=== PATIENT | male | born 1970 | race Caucasian/White ===

== ENCOUNTER 2016-11-15 18:14 | Emergency (ER) ==
--- NOTE | 2016-11-15 19:40 | PROVIDER DOCUMENTATION ---
HPI-Musculoskeletal Pain/Inj - GENERAL Chief Complaint: Extremity Pain Stated Complaint: RT FT PAIN Time Seen by Provider: 11/15/16 19:35 Source: patient - HX OF PRESENT ILLNESS-MUSKULOSKELTAL Nature of Presenting Problem: 46 y/o WM c/o R foot pain, numbness x 3 days. Pt states that painful with walking. States felt pop in foot on Tuesday and states painful since. Pt ambulating to room, with limp. States pinky toe is black. Reports foot is swollen. Denies any other sxs. Review of Systems - Adult - REVIEW OF SYSTEMS - ADULT Constitutional: reports: no symptoms reported. denies: chills, fever Eyes: reports: no symptoms reported. denies: blurred vision, double vision Ears, Nose, Mouth & Throat: reports: no symptoms reported. denies: ear pain, nose pain Cardiovascular: reports: no symptoms reported. denies: chest pain, palpitations Respiratory: reports: no symptoms reported. denies: dyspnea on exertion, shortness of breath Gastrointestinal: reports: no symptoms reported. denies: abdominal pain, nausea , vomiting Genitourinary: reports: no symptoms reported. denies: dysuria, frequency Musculoskeletal: reports: see HPI, joint pain. denies: back pain, neck pain Integumentary: reports: no symptoms reported. denies: nail changes, rash Neurological: reports: no symptoms reported. denies: numbness, paresthesia Psychiatric: reports: no symptoms reported Endocrine: reports: no symptoms reported. denies: cold intolerance, heat intolerance Hematologic/Lymphatic: reports: no symptoms reported. denies: easy bruising, prolonged bleeding Allergic/Immunologic: reports: no symptoms reported All Other Systems: Reviewed and Negative Past History - Adult - PAST MEDICAL HISTORY-ADULT Review of Records: reports: Nursing Assessment Review, Medications Reviewed Major Childhood Illnesses: reports: denies history Cardiovascular: reports: denies history Respiratory: reports: denies history Gastrointestinal: reports: denies history Obstetrical/Gynecological: reports: denies history Genitourinary: reports: denies history Musculoskeletal: reports: denies history Neurological: reports: other (nerve damage) Endocrine/Immune: reports: Diabetes Other Conditions: reports: denies history - PRIOR SURGERIES/PROCEDURES Surgical/Procedure History: reports: back/neck - IMMUNIZATION STATUS Childhood Immunizations: See Nurse Assessment Flu Vaccine: See Nurse Assessment - FAMILY HISTORY Family History: reviewed, not pertinent - SOCIAL HISTORY Smoking: cigarettes, less than 1 pack/day Alcohol Use Frequency: never Physical Exam-Injury Related - Physical Exam-Injury Related Initial Vital Signs Reviewed: Yes General Appearance: alert, mild distress Eyes: pink conjunctivae Head, Ears, Nose, Mouth & Throat: normocephalic/atraumatic, moist mucous membranes Neck: normal inspection Respiratory: no respiratory distress Cardiovascular: normal peripheral pulses, regular rate, rhythm Peripheral Pulses: dorsalis-pedis (R): 1+, dorsalis-pedis (L): 1+ Back Exam: normal inspection Extremity: normal inspection, normal capillary refill, swelling (mild, redness to 4th digit of R foot). negative: abnormal NV exam, pulse deficit Integumentary: normal color, warm/dry, blanching. negative: rash, swelling, warm Neurologic: sensory deficit (states no sensation to dorsal aspect of foot). negative: aphasia, motor weakness Psych/Mental Status: normal mood/affect, normal thought content, normal thought process, oriented x 3 Progress - PLAN OF CARE/RESULTS Progress/Plan/Lab Results: Laboratory Tests 11/15/16 11/15/16 20:25 20:25 WBC 9.65 RBC 5.14 Hgb 16.8 Hct 47.5 MCV 92.4 MCH 32.7 H MCHC 35.4 RDW Std Deviation 11.8 Plt Count 182 MPV 12.0 H Immature Gran % (Auto) 0.0 Neut % (Auto) 55.3 Lymph % (Auto) 36.6 [place] % (Auto) 6.9 Eos % (Auto) 1.0 Baso % (Auto) 0.2 Immature Gran # (Auto) 0.00 Neut # (Auto) 5.33 Lymph # (Auto) 3.53 H [place] # (Auto) 0.67 H Eos # (Auto) 0.10 Baso # (Auto) 0.02 Sodium 140 Potassium 4.4 Chloride 99 Carbon Dioxide 26 Anion Gap 15 BUN 14 Creatinine 0.8 Estimated GFR/1.73 m2 > 60 BUN/Creatinine Ratio 18 Glucose 240 H Calculated Osmolality 288 Calcium 9.4 Total Bilirubin 0.57 AST 14 ALT 18 Alkaline Phosphatase 46 Total Protein 7.2 Albumin 4.4 Globulin 2.8 Albumin/Globulin Ratio 1.6 Orders Category Date Time Status FOOT COMPLETE RIGHT [RAD] Stat Exams 11/15/16 19:41 Completed CBC WITH ELECTRONIC DIFF [HEME] Stat Lab 11/15/16 20:25 Completed COMPREHENSIVE METABOLIC PANEL [CHEM] Stat Lab 11/15/16 20:25 Completed Vital Signs Temp Pulse Resp BP Pulse Ox 11/15/16 22:36 91 H 20 122/99 100 11/15/16 18:36 98.3 F 114 H 18 155/95 100 fentanyl Allergy (Verified 11/15/16 21:37) SHORTNESS OF BREATH hydromorphone HCl * [From Dilaudid] Adverse Reaction (Verified 11/15/16 21:37) RASH morphine Adverse Reaction (Verified 11/15/16 21:37) Unknown Penicillins Adverse Reaction (Verified 11/15/16 21:37) SHORTNESS OF BREATH steroids Allergy (Uncoded 11/15/16 21:37) ANAPHYLAXIS Insulin Detemir [Levemir] 16 units SQ QHS 02/14/15 Insulin Aspart [Novolog] 10 - 15 unit SQ AC 11/15/16 TYPE 2 DIABETES MELLITUS WITHOUT COMPLICATIONS (11/15/16) NICOTINE DEPENDENCE, CIGARETTES, UNCOMPLICATED (11/15/16) NEURALGIA AND NEURITIS, UNSPECIFIED (11/15/16) PAIN IN RIGHT FOOT (11/15/16) ANESTHESIA OF SKIN (11/15/16) LOCALIZED SWELLING, MASS AND LUMP, RIGHT LOWER LIMB (11/15/16) EXPOSURE TO OTHER SPECIFIED FACTORS, INITIAL ENCOUNTER (11/15/16) RESIDENTIAL (CURRENT) USE OF INSULIN (11/15/16) Laboratory 11/15/16 11/15/16 20:25 20:25 WBC 9.65 RBC 5.14 Hgb 16.8 Hct 47.5 MCV 92.4 MCH 32.7 H MCHC 35.4 RDW Std Deviation 11.8 Plt Count 182 MPV 12.0 H Immature Gran % (Auto) 0.0 Neut % (Auto) 55.3 Lymph % (Auto) 36.6 [place] % (Auto) 6.9 Eos % (Auto) 1.0 Baso % (Auto) 0.2 Immature Gran # (Auto) 0.00 Neut # (Auto) 5.33 Lymph # (Auto) 3.53 H [place] # (Auto) 0.67 H Eos # (Auto) 0.10 Baso # (Auto) 0.02 Sodium 140 Potassium 4.4 Chloride 99 Carbon Dioxide 26 Anion Gap 15 BUN 14 Creatinine 0.8 Estimated GFR/1.73 m2 > 60 BUN/Creatinine Ratio 18 Glucose 240 H Calculated Osmolality 288 Calcium 9.4 Total Bilirubin 0.57 AST 14 ALT 18 Alkaline Phosphatase 46 Total Protein 7.2 Albumin 4.4 Globulin 2.8 Albumin/Globulin Ratio 1.6 discussed results and follow up with the patient. - XRAY 1 XRAY: Right XRAY Study: Foot XRAY Interpretation: No evidence of infection, osteomyelitis Departure - Departure Time of Disposition Order: 22:26 DIAGNOSIS: Foot pain, right, Neuropathic pain Disposition: HOME 01 Certified Medical Emergency: Emergent Condition: Stable Additional Instructions: Continue using medications as directed, to control diabetes. Follow up with your PCP for further management. ED Follow Up Instructions: You have been treated by a care provider in the Emergency Department. These instructions are being provided to you so you can have an understanding of how to care for yourself upon discharge. Upon discharge from the Emergency Department, you are responsible for making arrangements for follow-up care by a physician of your choice. Take all prescribed medications as directed. Return to the Emergency Department immediately for any new or worsening symptoms. You may call the Physician Referral phone number at [phone] to obtain a list of Physicians who are taking new patients. Referrals: None,PCP [Primary Care Provider] - Instructions: Neuropathic Pain Attestation - Physician/ MARTHA Attestation Patient care was provided by Advanced Practice Provider:: Yes Advanced Practice Provider:: Anabel Chavira Advanced Practice Provider documentation review:: The Mid-level provider documentation, treatment plan and medical decision making was reviewed by the physician who agrees with all treatment and medical decision making by the MLP.
[2016-11-15 20:56] LABS: MANUAL DIFF NEEDED? NO
[2016-11-15 21:10] LABS: BASO% 0.2 % (0.0-0.8); HEMATOCRIT 47.5 % (42.0-52.0); HEMOGLOBIN 16.8 g/dL (14.0-18.0); LYMPH# 3.53 X1000 (1.2-3.4); LYMPH% 36.6 % (20.5-51.1); MCH 32.7 PG (27-31); MCHC 35.4 g/dL (33-37); MCV 92.4 FL (81-99); MONO# 0.67 X1000 (0.11-0.59); MONO% 6.9 % (1.7-9.3); NEUT% 55.3 % (42.2-75.2); PLT 182 X1000 (130-400); RBC 5.14 XMIL (4.7-6.1)
[2016-11-15 21:23] LABS: AGAP 15; ALBUMIN 4.4 g/dL (3.5-5.0); ALKALINE PHOSPHATASE 46 U/L (32-122); BUN 14 mg/dL (8-22); CALCIUM 9.4 mg/dL (8.8-10.2); CHLORIDE 99 mmol/L (98-107); COSMO 288; GOT 14 U/L (10-34); GPT 18 U/L (10-44); POTASSIUM 4.4 mmol/L (3.5-5.1); SODIUM 140 mmol/L (136-145); TCO2 26 mmol/L (25-35); TOTAL BILIRUBIN 0.57 mg/dL (0.20-1.00); TOTAL PROTEIN 7.2 g/dL (6.3-8.3)
[2016-11-15 22:37] VITALS: BP 122/99
--- NOTE | 2016-11-16 08:31 | Diag Imaging Result Document ---
PROCEDURE NAME: FOOT COMPLETE RIGHT - 11/15/2016 RIGHT FOOT, THREE VIEWS: FINDINGS: No fracture. No dislocation. No bone erosions. Minimal narrowing at the 1st metatarsophalangeal joint. No subluxation. No bone spurring. No erosions. IMPRESSION: Questionable minimal early arthritic changes at the 1st metatarsophalangeal joint.
== END 2016-11-15 23:01 | disposition home or self-care (01) ==
LOC: ED 18:14
DX: M79.671 Pain in right foot (principal); M79.2 Neuralgia and neuritis, unspecified; R20.0 Anesthesia of skin; R22.41 Localized swelling, mass and lump, right lower limb; E11.9 Type 2 diabetes mellitus without complications; F17.210 Nicotine dependence, cigarettes, uncomplicated; Z79.4 Long term (current) use of insulin; X58.XXXA Exposure to other specified factors, initial encounter
CPT/HCPCS: 36415; 80053; 85025; 99283

== ENCOUNTER 2016-12-06 09:09 | Inpatient (IN) ==
[2016-12-06] MEDS: NS 1,000 ML IV SCH (13:58)
[2016-12-06] MEDS ORDERED: HEPARIN 25,000 UNIT in NS 250 ML IV SCH (14:00)
[2016-12-06 14:56] LABS: MANUAL DIFF NEEDED? NO
[2016-12-06 14:59] LABS: BASO% 0.3 % (0.0-0.8); EOS# 0.06 X1000 (0.0-0.7); EOS% 0.8 % (0.0-10.0); HEMATOCRIT 44.5 % (42.0-52.0); HEMOGLOBIN 15.8 g/dL (14.0-18.0); LYMPH# 2.85 X1000 (1.2-3.4); LYMPH% 36.5 % (20.5-51.1); MCHC 35.5 g/dL (33-37); MCV 92.9 FL (81-99); MONO# 0.51 X1000 (0.11-0.59); MONO% 6.5 % (1.7-9.3); MPV 12.2 FL (7.4-10.4); NEUT% 55.9 % (42.2-75.2); PLT 182 X1000 (130-400); RBC 4.79 XMIL (4.7-6.1)
[2016-12-06 15:18] LABS: HEMOGLOBIN A1C 9.9 % (4.8-6.0)
[2016-12-06 15:24] LABS: INR 0.96
[2016-12-06 15:32] LABS: AGAP 18; ALBUMIN 4.4 g/dL (3.5-5.0); ALKALINE PHOSPHATASE 34 U/L (32-122); BUN 10 mg/dL (8-22); CALCIUM 9.1 mg/dL (8.8-10.2); CHLORIDE 91 mmol/L (98-107); COSMO 275; GOT 15 U/L (10-34); GPT 17 U/L (10-44); POTASSIUM 4.3 mmol/L (3.5-5.1); SODIUM 133 mmol/L (136-145); TCO2 24 mmol/L (25-35); TOTAL BILIRUBIN 0.71 mg/dL (0.20-1.00); TOTAL PROTEIN 7.3 g/dL (6.3-8.3)
[2016-12-06] MEDS: PERCOCET-5 PO PRN ×2 (15:51→22:21)
--- NOTE | 2016-12-06 18:10 | Diag Imaging Result Document ---
PROCEDURE NAME: ANGIOGRAM/AORTA W/RUNOFF - 12/06/2016 CT ANGIOGRAM AORTA WITH RUNOFF, WITH MIP IMAGES: FINDINGS: Normal liver, pancreas, and adrenal glands. The gallbladder is contracted. There are scattered splenic granuloma. The spleen is not enlarged. No renal mass. No bowel obstruction although there is stool throughout the colon. The urinary bladder is distended and appears normal. Normal abdominal aorta. Normal takeoff of the celiac artery and superior mesenteric artery. Normal takeoff of each renal artery. Minimal atherosclerosis distally. Left: Minimal stenosis in the common iliac artery. No calcified plaque. Normal external iliac artery. Normal common femoral artery. Normal superficial femoral artery. There is a small amount of atherosclerosis in the popliteal artery. There is actually poor concentration of contrast in the popliteal artery and calf although both anterior and posterior tibial arteries appear to be open and there is no atherosclerotic plaque. Right: Normal common iliac artery. Normal external iliac artery. Normal common femoral artery with minimal mucosal thickening distally. Normal superficial femoral artery except for a stenosis in the adductor canal of approximately 70%. There is also a stenosis in the popliteal artery. Poor concentration of contrast due to timing in the popliteal, anterior, and posterior tibial arteries. No calcified plaque in the anterior and posterior tibial arteries. Each vessel continues to the ankle. IMPRESSION: Stenosis in the distal right superficial femoral artery in the adductor canal of at least 70%.
[2016-12-06] MEDS: PLETAL PO SCH (20:19)
[2016-12-06] MEDS ORDERED: HUMULIN R SUBQ SCH (21:00)
--- NOTE | 2016-12-06 21:09 | HISTORY AND PHYSICAL ---
CHIEF COMPLAINT: Right leg claudication, decreased pulses for the last 2 weeks. HISTORY OF PRESENT ILLNESS: He is a 46-year-old, white gentleman who was seen in my office on 12/02/2016 for right foot pain increasing worsening for the last 10 days. He was seen in the emergency room 10 days ago, diagnosed with peripheral neuropathy. In my office I did the arterial flow studies. It showed RAMESH 0.5 on the right, normal on the left side. Arterial flow study demonstrated he had a distal SFA occlusion with a poor reconstitution at the popliteal artery. He has a collateral noted. He is also getting ischemic on the bottom of the heel. As a result, he has been hospitalized for ischemic foot consistent with a resting ischemia. He was started on aspirin, Pletal, and IV heparin. Waiting for CT aortogram with runoff. Based on that, further recommendations will be followed. Dr. Miranda has been consulted. PAST MEDICAL HISTORY: 1. Type 1 diabetes since age 16. 2. Nicotine dependency. 3. Chronic back pain as well as neck pain due to spondylosis. PAST SURGICAL HISTORY: None. MEDICATIONS: Levemir, NovoLog insulin, lisinopril 2.5 mg daily, aspirin 81 mg daily, [place] as directed. ALLERGIES: Penicillin. SOCIAL HISTORY: Lives in [place]. Smoking 1 pack a day for the last 20 years. No alcohol. with 1 child. FAMILY HISTORY: Father due to respiratory failure with underlying COPD. Mom is stable. HEALTH MAINTENANCE: Flu vaccine 2012, pneumococcal vaccine 2011, tetanus 2011. Last prostate exam in 2016. REVIEW OF SYSTEMS: HEENT: No headache. No dizziness. No earache. No sore throat. Neck: No goiter. No lymphadenopathy. No bruits. Cardiopulmonary: No chest pain, shortness of breath, PND, orthopnea. GI: No nausea, vomiting, abdominal pain. : No history of hesitancy, frequency. Musculoskeletal: Resting pain in the right foot. No skin rashes. Chronic back pain on pain medications. Neurologic: No focal symptoms or weakness or seizures. PHYSICAL EXAMINATION: VITAL SIGNS: Afebrile. Blood pressure is stable. Weight 131 pounds. HEENT: Atraumatic, normocephalic. Pupils equal, reactive to light. TMs are normal. Nose and throat within normal limits. NECK: Supple. No lymphadenopathy. No goiter. CHEST: Bilateral air entry. No rales, no wheezing. HEART: Sounds are regular. ABDOMEN: Belly is soft, nontender. Good bowel sounds. EXTREMITIES: Decreased pulses in the right foot. Ischemic changes on the bottom of the heel. Rest of the exam is benign. NEUROLOGIC: No obvious deficits noted. INVESTIGATIONS: CBC: White cell count 7.8, hematocrit 44, platelets 182,000. PT/INR normal. SMA 7: Sodium 133, potassium 4.3, anion gap is 18, BUN 10, creatinine 0.6, glucose 270. A1c 9.9. Liver function tests were normal. Vitamin B12 286. TSH is normal. ASSESSMENT AND PLAN: 1. A 46-year-old, white gentleman who presented with right ischemic foot consistent with resting ischemia. Ankle-brachial index is 0.5 on the right side, suspicious for superficial femoral artery obstruction distally with a poor downstream. Consider CT aortogram with runoff. Vascular consult with Dr. Miranda. Currently on IV heparin, aspirin, Pletal. 2. We will check the lipid profile and also start on Lipitor 20 mg daily. 3. Type 1 diabetes, on Levemir and Humalog insulin. 4. Hypertension, on lisinopril. 5. Chronic pain, on Percocet. 6. Based on the CT, further recommendations will be followed. Discussed with the family members. cc: Jose Hoang MD
[2016-12-06] MEDS: NICODERM PATCH TD SCH (22:20)
[2016-12-06] MEDS: LIPITOR PO SCH (22:22)
[2016-12-06] MEDS ORDERED: INSULIN PEN NEEDLES ONE (23:27)
[2016-12-06] MEDS: HUMALOG SUBQ SCH (23:29)
[2016-12-06] MEDS: LEVEMIR SUBQ SCH (23:31)
[2016-12-06] MEDS ORDERED: HEPARIN IV ONE (23:57)
[2016-12-07] MEDS: NS 1,000 ML IV SCH ×3 (03:50→13:48)
[2016-12-07] MEDS: PERCOCET-5 PO PRN ×4 (04:15→22:40)
[2016-12-07] MEDS: HUMALOG SUBQ SCH ×2 (07:33→11:52)
[2016-12-07] MEDS ORDERED: HEPARIN IV ONE (08:14)
[2016-12-07] MEDS: NICODERM PATCH TD SCH (08:24)
[2016-12-07] MEDS: PLETAL PO SCH ×2 (08:24→22:00)
[2016-12-07] MEDS: ASPIRIN PO SCH (08:24)
[2016-12-07] MEDS: PRINIVIL PO SCH (08:24)
[2016-12-07] MEDS ORDERED: HEPARIN 25,000 UNIT in NS 250 ML IV SCH ×5 (09:10→13:00)
--- NOTE | 2016-12-07 14:08 | CONSULTATION ---
DATE OF CONSULTATION: 12/07/2016 CHIEF COMPLAINT: Numbness in the foot. Claudication in the right leg. HISTORY: This is a 46-year-old smoker who about a month ago experienced sudden onset of some discomfort in his right calf and foot. He was seen in the emergency department and was felt to have peripheral neuropathy and discharged to follow up with his family physician who discovered that he had diminished pulses in his foot. Ankle brachial index was discovered to be 0.5 on the right, normal on the left. He was admitted and underwent a CTA revealing a distal SFA stenosis, possibly a right popliteal stenosis. This would be consistent with his symptoms. PAST MEDICAL HISTORY: Pertinent for insulin-dependent diabetes, nicotine dependency and chronic back pain. He has had no previous surgeries. MEDICATIONS: Levemir, NovoLog insulin, lisinopril 2.5 mg daily, aspirin 81 mg daily, [place] for pain as needed. ALLERGIES: He is allergic to penicillin. FAMILY HISTORY: Pertinent for COPD. SOCIAL HISTORY: Smokes a half pack per day. He has done so for 20 years. Denies alcohol use. He is . REVIEW OF SYSTEMS: Negative except for what is noted above. He denies any chest pain or shortness of breath. PHYSICAL EXAMINATION: Vital Signs: He is afebrile. Heart rate 76, blood pressure 125/74. Neck: No cervical adenopathy. Lungs: Bilateral breath sounds. Heart: Regular rate, rhythm. Abdomen: Soft, nontender. Extremities: 3+ femoral pulses are present. He has a 3+ left dorsalis pedis pulse, 1+ left posterior tibial pulse. No palpable pedal pulses in the right foot. He has a little bit of ischemic change of his toes. There is no peripheral edema. His foot is not cold. ASSESSMENT: Right superficial femoral stenosis, possible right popliteal stenosis. PLAN: Will be a right SFA and popliteal atherectomy with paclitaxel balloon angioplasty if indicated. I discussed the procedure, the benefits, risks, the options. He wants to proceed. We will check on timing. cc: MD Jose Grullon MD
[2016-12-07] MEDS: NON-FORMULARY BULK MED SUBQ SCH ×2 (16:57→22:24)
--- NOTE | 2016-12-07 19:11 | PROGRESS NOTE ---
DATE: 12/07/2016 SUBJECTIVE: 1. The patient complains of right foot pain. 2. Blood sugars are running 350. 3. Patient had a CT aortogram with runoff last night. 4. I did discuss with Dr. Archie Guan. It showed right SFA tight focal lesion 70%. REVIEW OF SYSTEMS: None reported. PHYSICAL EXAMINATION: Vital Signs: Stable, afebrile, hemodynamics are stable, pulse ox 99%. HEENT Examination: Within normal limits. Neck: Supple. No lymphadenopathy. No goiter. Chest: Clear to auscultation. Heart: Sounds are regular. Abdomen: Belly is soft, nontender, good bowel sounds. Extremities: Decreased pulses in the right foot. Mild ischemic changes on the bottom of the heel. INVESTIGATIONS: PTT 57.6, A1c 9.9, B12 is 286, TSH is normal. CT aortogram findings discussed with the patient. ASSESSMENT AND PLAN: 1. Right ischemic foot due to focal stenosis at distal SFA. I coordinated with Dr. Miranda and discussed on the telephone. Waiting for consultation. 2. Poorly-controlled diabetes on Levemir and sliding scale. 3. Vitamin B12 is on the low side. We will replace the B12. 4. Chronic tobacco abuse. Nicotine cessation program. I offered Nicotrol patches. 5. We will also check the lipid panel, keep the LDL less than 70. 6. We will follow up. LEVEL OF DOCUMENTATION: 25 minutes. cc: Jose Hoang MD
[2016-12-07] MEDS: LIPITOR PO SCH (22:00)
[2016-12-07] MEDS: LEVEMIR SUBQ SCH (23:39)
[2016-12-08] MEDS: NS 1,000 ML IV SCH ×2 (02:26→18:32)
[2016-12-08] MEDS: PERCOCET-5 PO PRN ×3 (04:37→22:28)
[2016-12-08] MEDS ORDERED: D50W 500 ML IV SCH (05:24)
[2016-12-08] MEDS ORDERED: D50W SYRINGE IV PRN (05:35)
[2016-12-08] MEDS: NON-FORMULARY BULK MED SUBQ SCH ×4 (06:31→20:27)
[2016-12-08 07:13] LABS: HDL 57 mg/dL (35-55); LDL 110 mg/dL; TRIGLYCERIDES 101 mg/dL (39-160); VLDL 20 mg/dL
[2016-12-08] MEDS ORDERED: AMBIEN PO PRN (08:36)
--- NOTE | 2016-12-08 08:53 | PROGRESS NOTE ---
DATE: 12/08/2016 SUBJECTIVE/INTERVAL HISTORY: The patient was seen by Dr. Miranda. Complaints of resting pain in the right foot. He also has some anxiety issues. He has been NPO since midnight. Blood sugars dropped to 69. The patient was given D50. REVIEW OF SYSTEMS: None reported other than right foot pain. PHYSICAL EXAMINATION: Vital Signs: Stable. HEENT: Examination within normal limits. Neck: Supple. No lymphadenopathy. No goiter. Chest: Clear. Heart: Heart sounds are regular. Abdomen: Belly is soft, nontender. Good bowel sounds. Extremities: Right foot has mild ischemic changes on the heel. Decreased pulses. INVESTIGATIONS: PTT 57. Blood sugar this morning 69. Cholesterol 101, HDL 57. ASSESSMENT AND PLAN: 1. Right ischemic foot. Waiting for intervention by Dr. Miranda with atherectomy and angioplasty. 2. Discontinue heparin. 3. Hypoglycemia. D50 and followup on sliding scale. 4. Vitamin B12 deficiency, on replacement therapy. 5. Secondary prevention. Uncontrolled diabetes, tobacco abuse, hyperlipidemia discussed with the patient in the near future. 6. Ambien for as needed sleep tonight and we will follow. cc: Jose Hoang MD
--- NOTE | 2016-12-08 10:33 | EKG Report ---
Test Performed on : 12/08/2016 10:20:59 AM Test Reason : Prep for surgery Blood Pressure : / mmHG Vent. Rate : 088 BPM Atrial Rate : 088 BPM P-R Int : 124 ms QRS Dur : 100 ms QT Int : 392 ms P-R-T Axes : 084 145 036 degrees QTc Int : 474 ms Normal sinus rhythm. Right atrial enlargement Right axis deviation Pulmonary disease pattern Abnormal ECG No previous ECGs available Confirmed by Doyle LOPEZ, Raúl Gutierrez ([id number]) on 12/10/2016 9:29:15 PM
[2016-12-08] MEDS: ASPIRIN PO SCH (11:11)
[2016-12-08] MEDS: PLETAL PO SCH ×2 (11:12→20:05)
[2016-12-08] MEDS: NICODERM PATCH TD SCH (11:12)
[2016-12-08] MEDS ORDERED: VANCOMYCIN 1 GM/NS 1 GM/250 ML IVPB IV ONE (12:34)
[2016-12-08] MEDS: CYANOCOBALAMIN IM SCH (14:25)
[2016-12-08] MEDS ORDERED: VANCOMYCIN 1 GM/NS 1 GM/250 ML IVPB ONE (14:52)
[2016-12-08] MEDS ORDERED: HEPARIN ONE ×2 (15:09)
[2016-12-08] MEDS ORDERED: NS 2,000 ML ONE (15:10)
[2016-12-08] MEDS ORDERED: PAPAVERINE ONE (16:27)
[2016-12-08 17:19] LABS: URINE SOURCE CLEAN CATCH
[2016-12-08 17:21] LABS: BILIRUBIN URINE NEGATIVE (NEGATIVE); BLOOD URINE NEGATIVE (NEGATIVE); CLARITY CLEAR (CLEAR); COLOR YELLOW; GLUCOSE URINE 500 mg/dL (NEGATIVE); LEUKOCYTES URINE NEGATIVE (NEGATIVE); NITRITE URINE NEGATIVE (NEGATIVE); PROTEIN URINE NEGATIVE (NEGATIVE); UROBILINOGEN URINE 0.2 EU/dL (0.2-1.0)
[2016-12-08 17:38] LABS: URINE CAST NONE SEEN /LPF; URINE EPITHELIAL CELLS <10 /HPF (<10); URINE RBC <10 /HPF (<10); URINE WBC <10 /HPF (<10)
[2016-12-08 17:39] LABS: URINE CRYSTAL NONE SEEN /HPF
[2016-12-08] MEDS ORDERED: DIPRIVAN 1% ONE (17:42)
[2016-12-08] MEDS ORDERED: DEMEROL ONE (17:42)
[2016-12-08] MEDS ORDERED: FENTANYL ONE (17:42)
[2016-12-08] MEDS: PRINIVIL PO SCH (18:33)
[2016-12-08] MEDS: DEMEROL IV PRN (18:40)
--- NOTE | 2016-12-08 18:42 | OPERATIVE NOTE ---
PROCEDURE DATE: 12/08/2016 NAME OF THE PROCEDURE: Right femoral artery access with ultrasound guidance; right leg arteriogram; right popliteal atherectomy with paclitaxel balloon angioplasty using a 4 mm balloon; right SFA balloon angioplasty using a 5 mm paclitaxel balloon. PREOPERATIVE DIAGNOSIS: Right leg claudication right popliteal SFA stenosis. POSTOPERATIVE DIAGNOSIS: Right leg claudication with right popliteal occlusion, right SFA stenosis. DESCRIPTION OF PROCEDURE: Satisfactory general endotracheal anesthesia was achieved. The right leg and left groin were prepped and draped in a sterile fashion. With ultrasound guidance we accessed the right common femoral in an antegrade approach. We used the Seldinger technique, using a 7-[place] sheath into the SFA. 5000 units of heparin were given. We shot an arteriogram and this showed a right popliteal occlusion. There also was suggestion of an SFA stenosis at the adductor canal. We passed the Glidewire across the popliteal occlusion into the anterior tibial artery. After crossing it we used a Trailblazer into the anterior tibial. We shot an arteriogram of the anterior tibial proving we were intraluminal. We then switched to an 0.014 wire down the anterior tibia. This is a Nitrex wire. We obtained then a [employer] atherectomy catheter and passed it down to the popliteal and treated it from proximal to distal. Completion arteriogram showed resolution of the occlusion with free flow into the anterior tibial as well as down the tibioperoneal trunk into the posterior tibial and peroneal arteries. We then chose a 4 x 40 paclitaxel balloon Impact DCB balloon and treated the popliteal into the anterior tibial artery. This was for 3 minutes. We then addressed the stenosis at the adductor canal and chose a 5 x 40 Impact DCB balloon there, treated it for 3 minutes as well. Upon completion of that, we shot a completion arteriogram that showed there was some spasm in the anterior tibial. We then injected papaverine, 120 mg of papaverine down the leg to help relieve the spasm. We chose the Mynx wound arterial closure device. But upon removing it, it appeared that some of the plug was displaced so we had to hold pressure for 20 minutes on the femoral artery and then place a pressure dressing. This achieved satisfactory hemostasis. He tolerated the procedure satisfactorily. 80 mL of contrast was used. He was sent to the recovery room in satisfactory condition. cc: MD Jose Grullon MD
[2016-12-08] MEDS: LIPITOR PO SCH (20:05)
[2016-12-08] MEDS: LEVEMIR SUBQ SCH (23:30)
[2016-12-09] MEDS: DEMEROL IV PRN ×2 (02:30→08:45)
[2016-12-09] MEDS: PERCOCET-5 PO PRN ×2 (05:06→11:34)
[2016-12-09] MEDS: NS 1,000 ML IV SCH (06:20)
[2016-12-09] MEDS ORDERED: INSULIN PEN NEEDLES ONE (06:27)
[2016-12-09] MEDS: NON-FORMULARY BULK MED SUBQ SCH ×2 (06:40→11:31)
[2016-12-09 07:08] LABS: MANUAL DIFF NEEDED? NO
[2016-12-09 07:21] LABS: BASO% 0.2 % (0.0-0.8); EOS# 0.13 X1000 (0.0-0.7); EOS% 1.4 % (0.0-10.0); HEMATOCRIT 40.2 % (42.0-52.0); HEMOGLOBIN 14.1 g/dL (14.0-18.0); LYMPH# 2.54 X1000 (1.2-3.4); LYMPH% 27.6 % (20.5-51.1); MCH 32.9 PG (27-31); MCHC 35.1 g/dL (33-37); MCV 93.7 FL (81-99); MONO# 0.61 X1000 (0.11-0.59); MONO% 6.6 % (1.7-9.3); MPV 11.4 FL (7.4-10.4); NEUT% 64.2 % (42.2-75.2); PLT 154 X1000 (130-400); RBC 4.29 XMIL (4.7-6.1)
[2016-12-09 07:33] VITALS: BP 121/73
[2016-12-09 07:40] LABS: AGAP 11; BUN 8 mg/dL (8-22); CALCIUM 8.3 mg/dL (8.8-10.2); CHLORIDE 103 mmol/L (98-107); COSMO 280; POTASSIUM 3.9 mmol/L (3.5-5.1); SODIUM 140 mmol/L (136-145); TCO2 26 mmol/L (25-35)
[2016-12-09] MEDS: PLETAL PO SCH (08:44)
[2016-12-09] MEDS: ASPIRIN PO SCH (08:45)
[2016-12-09] MEDS: PRINIVIL PO SCH (08:45)
[2016-12-09] MEDS ORDERED: NEO-SYNEPHRINE ONE (08:55)
[2016-12-09] MEDS ORDERED: ANESTHESIA PB SET 88 IN 5742 ONE (08:55)
[2016-12-09] MEDS ORDERED: ROBINUL ONE (08:55)
[2016-12-09] MEDS ORDERED: ZOFRAN ONE (08:55)
[2016-12-09] MEDS ORDERED: LR 2,000 ML ONE (08:55)
[2016-12-09] MEDS ORDERED: NEOSTIGMINE ONE (08:55)
[2016-12-09] MEDS ORDERED: XYLOCAINE-MPF 2% ONE (08:55)
[2016-12-09] MEDS ORDERED: ZEMURON ONE (08:55)
[2016-12-09] MEDS ORDERED: HEPARIN ONE (08:55)
[2016-12-09] MEDS ORDERED: QUELICIN (DOSE) ONE (08:55)
[2016-12-09] MEDS ORDERED: SODIUM CHLORIDE 0.9% 20 ML ONE (08:55)
[2016-12-09] MEDS ORDERED: EXTENSION SET 32 IN 4522 ONE (08:55)
[2016-12-09] MEDS: NICODERM PATCH TD SCH (11:27)
[2016-12-09] MEDS: CYANOCOBALAMIN IM SCH (11:30)
--- NOTE | 2016-12-09 22:09 | DISCHARGE SUMMARY ---
ADMISSION DATE: 12/06/2016 DISCHARGE DATE: 12/09/2016 DISCHARGING DIAGNOSIS: Right ischemic foot due to significant focal obstruction at distal superficial femoral artery and popliteal artery. SECONDARY DIAGNOSES: 1. Type 1 diabetes. 2. Chronic tobacco abuse. 3. Hyperlipidemia. 4. Chronic pain due to spondylosis. CONSULTANTS: Dr. Parveen Miranda. PROCEDURES: Atherectomy of distal superficial femoral artery and popliteal artery, followed by a balloon angioplasty. BRIEF HISTORY: Please see the H and P that was done on the day of admission. In brief, he is a 46-year-old, white gentleman, admitted to the hospital with a right ischemic foot with ischemic changes on the bottom of the field and decreased pulses. CT aortogram runoff findings as above. Dr. Miranda was consulted. He was started on aspirin, Pletal, IV heparin. He was given Demerol for pain control. Dr. Miranda did the above procedures. Following atherectomy and angioplasty, patient had good pulses. Pain is adequately controlled. Rest of the hospital course was uneventful. LABORATORIES/DIAGNOSTICS: CBC: White cell count 9.2, hematocrit 40, platelets 154,000. SMA7: Sodium 140, potassium 3.9, chloride 103, BUN is 8, creatinine 0.7, glucose 140, A1c 9.9, cholesterol 187, HDL 57, LDL 110. Urinalysis is clear. CT angiogram runoff off findings: With a focal stenosis at distal SFA and popliteal artery. DISCHARGE INSTRUCTIONS: 1. Insulin Levemir 16 units at bedtime. 2. NovoLog insulin as directed on sliding scale. 3. Lisinopril 2.5 mg daily. 4. Lipitor 20 mg daily. 5. Aspirin 80 mg daily. 6. Percocet as needed for pain. 7. Nicotine cessation programs discussed. FOLLOWUP: Follow up in my office next week as well as Dr. Miranda. cc: MD Parveen Asencio MD
== END 2016-12-09 13:10 | disposition home or self-care (01) ==
LOC: DIRADM 09:09 → 3N 10:50
PROVIDERS: ADMIT Internal Medicine; ATTEND Internal Medicine